=== PATIENT | female | born 1950 | race Caucasian/White ===

== ENCOUNTER 2017-03-06 19:40 | Observation (INO) | payer MEDICARE ==
[2017-03-06] MEDS ORDERED: Aspirin Low Dose CHEW TAB* 81 MG PO ONE (19:56)
[2017-03-06] MEDS ORDERED: methylPREDNISolone 125 MG* 2 ML VIAL IV ONE (19:56)
[2017-03-06] MEDS ORDERED: EPINEPHrine AMP 1 MG/ML IM ONE (19:56)
[2017-03-06] MEDS ORDERED: Famotidine IV* 10 MG/ML 2 ML (20 mg) IV SLOW PU ONE (19:56)
[2017-03-06] MEDS ORDERED: diPHENhydraMINE IV* 50 MG in NS 0.9% 50 ML* 50 ML IVPB ONE (19:56)
[2017-03-06] MEDS ORDERED: NS 0.9% 1000 ML* 1,000 ML IV ONE (19:57)
[2017-03-06 20:23] LABS: Hematocrit 39 % (35-47); Hemoglobin 12.5 g/dl (12.0-16.0); Mean Corpuscular HGB Conc 32 g/dl (31-36); Mean Corpuscular Hemoglobin 27 pg (27-31); Mean Corpuscular Volume 85 fL (80-97); Mean Platelet Volume 9 um3 (7.4-10.4); Red Blood Count 4.57 10^6/ul (4.0-5.4); Red Cell Distribution Width 13 % (10.5-15); White Blood Count 8.8 10^3/ul (3.5-10.8)
--- NOTE | 2017-03-06 20:34 | RAD ---
INDICATION: Allergic reaction COMPARISON: None. TECHNIQUE: Single AP portable view of the chest was obtained. FINDINGS: Image quality is compromised due to the relative inferiority of a portable chest x-ray. The heart and mediastinum exhibit normal size and contour. The lungs are grossly clear. There is no evidence of a large pleural effusion. Visualized bones are normal for the patient's age. IMPRESSION: No radiographic evidence for acute cardiopulmonary abnormality on this portable chest x-ray.
[2017-03-06 20:36] LABS: Albumin 3.9 g/dL (3.2-5.2); BUN/Creatinine Ratio 14.9 (8-20); Calcium 8.9 mg/dL (8.6-10.3); EGFR African American 113.6 (>60); EGFR Non-African American 88.3 (>60); Globulin 2.4 g/dL (2-4); Potassium 3.5 mmol/L (3.5-5.0); Total Bilirubin 0.4 mg/dL (0.2-1.0); Total Protein 6.3 g/dL (6.4-8.9)
[2017-03-06] MEDS ORDERED: Ondansetron INJ* 2 MG/ML VIAL IV PRN (22:41)
[2017-03-06] MEDS ORDERED: Al Hydrox/Mg Hydrox/Simet LIQ* 30 ML UDC PO PRN (22:41)
[2017-03-06] MEDS ORDERED: Acetaminophen TAB* 325 MG PO PRN (22:41)
[2017-03-06] MEDS ORDERED: LORazepam TAB(*) 0.5 MG PO PRN (22:43)
[2017-03-06] MEDS ORDERED: traZODone TAB* 50 MG TAB PO PRN (22:43)
[2017-03-07] MEDS: diPHENhydraMINE IV* 25 MG in NS 0.9% 50 ML* 50 ML IVPB PRN ×2 (00:28→13:03)
--- NOTE | 2017-03-07 01:03 | HP ---
CC: Amelia Yun MD HISTORY AND PHYSICAL: DATE OF ADMISSION: 03/06/17 TIME OF EVALUATION: 2300. PRIMARY CARE PHYSICIAN: Amelia Yun MD CHIEF COMPLAINT: Lip swelling, tongue swelling, and chest pain. HISTORY OF PRESENT ILLNESS: This is a 67-year-old female with an unremarkable past medical history who states this evening she sat down on her chair outside and felt like an electric shock on her bottom area and found a bee on her chair. Shortly thereafter, she developed chest pain, tongue swelling, and shortness of breath. EMS was called. She was given epi in the ambulance. She was given another IM dose of epi in the emergency room. She was given Pepcid 40 mg IV, Solu-Medrol 125 mg IV, and Benadryl and was referred to the hospitalist service for further evaluation. She was also given aspirin 324 mg. On my encounter, the patient is very sleepy. She keeps falling asleep during my interaction. She states that her lips and tongue feel almost back to baseline. The tip of her tongue still feels a little abnormal. She denies any shortness of breath, no coughing, no chest pain. She did also have a rash that seems to have improved. No nausea or vomiting. No history of issues with bee stings in the past. She does have anaphylaxis to SULFA allergy. Otherwise, remaining review of systems is negative. PAST MEDICAL HISTORY: 1. Insomnia. 2. Cough variant asthma. MEDICATIONS: 1. Trazodone 50 mg at bedtime. 2. Lorazepam 1 mg at bedtime. ALLERGIES: New allergy that we will enter is BEE VENOM, anaphylaxis; SULFA ANTIBIOTICS, anaphylaxis; MORPHINE, nausea and vomiting; OXYCODONE, nausea and vomiting. FAMILY HISTORY: Reviewed and noncontributory. SOCIAL HISTORY: The patient lives alone. No known tobacco use. She admits to 3 glasses of wine in the evening. No illicit drug use. Her healthcare proxy is her son, Geovanny Brown. Code status is full code. PHYSICAL EXAMINATION GENERAL: In no acute distress, very sleepy secondary to Benadryl. VITAL SIGNS: Temp is 99, pulse rate is 85, respiratory rate is 16, oxygen saturation 98% on room air, and blood pressure 102/54. HEENT: Head normocephalic. Pupils equal and reactive, anicteric. Oropharynx: Mucous membranes are moist. No erythema or exudate. NECK: Supple. No adenopathy. RESPIRATORY: Clear to auscultation. No wheezes, rhonchi, or rales. CARDIAC: Regular rate and rhythm. No murmurs, rubs, or gallops. ABDOMEN: Soft, nontender, and nondistended. EXTREMITIES: No cyanosis, clubbing, or edema. +1 DP. NEUROLOGIC: Alert, awake, and oriented x3. No focal neurologic deficits. DERM: Faint urticarial rash on her torso. LABORATORY DATA: White count 8.8, hemoglobin 12.5, hematocrit 39, platelets 228. Sodium 131, potassium 3.5, chloride 97, bicarb 25, BUN 10, creatinine 0.67 , lactic acid 2.1, troponin is 0. RADIOGRAPHIC DATA: Chest x-ray: No radiographic evidence for cardiopulmonary abnormality. EKG: Normal sinus rhythm. ASSESSMENT: This is a 67-year-old female with an unremarkable past medical history who presents to the emergency room via EMS after having tongue swelling and chest paining after getting stung by a bee. Anaphylaxis. Assessment: The patient showing symptoms of anaphylaxis after a bee sting. Her symptoms have significantly improved with medications. Vitals are stable, limited. The patient is nearly back to her baseline. Plan: We will admit her overnight for observation on telemetry. We will continue her on prednisone, Pepcid, and Benadryl as needed. We will do one repeat troponin. The patient will need to be discharged home with an EpiPen. CHRONIC MEDICAL PROBLEMS: 1. Insomnia. Resume her trazodone and lorazepam as needed. Likely, we will not need this this evening in the setting of her Benadryl as she seems sedated. 2. FEN. Placed her on a regular diet. 3. DVT prophylaxis. The patient's scores moderate risk, place her on heparin subcu t.i.d. 4. Code status. Full code. PATIENT TIME: Greater than 50 minutes spent doing the history and physical, more than half the time spent in direct patient contact. [id number]/[facility] #: [id number] MTDD
[2017-03-07] MEDS: Famotidine TAB* 20 MG PO SCH ×2 (01:14→08:01)
[2017-03-07] MEDS: Heparin VIAL(*) 5000 UNITS/ML VIAL (FIVE THOUSAND) SUBCUT SCH ×2 (06:13→13:10)
[2017-03-07] MEDS ORDERED: Ibuprofen TAB* 200 MG PO PRN (08:42)
[2017-03-07] MEDS ORDERED: predniSONE TAB* 20 MG PO SCH (09:00)
[2017-03-07 12:00] VITALS: BP 140/62
[2017-03-07] MEDS ORDERED: diPHENhydraMINE IV* 50 MG/ML 1 ml VIAL (BENADRYL) ONE (12:54)
--- NOTE | 2017-03-10 02:45 | DS ---
DISCHARGE SUMMARY: DATE OF ADMISSION: 03/06/17 DATE OF DISCHARGE: 03/07/17 DISCHARGE DIAGNOSES: 1. Anaphylaxis due to bee sting. 2. Chronic insomnia. 3. Cough-variant asthma. 4. History of ALLERGIES to SULFA ANTIBIOTICS, MORPHINE, OXYCODONE. 5. Trichomonas vaginalis. HISTORY: Dilma Mosley is a 67-year-old woman admitted with anaphylaxis after a bee sting. Please see the dictated admission note for details of the present illness, past medical history, family history, social and personal history, review of systems, and physical examination. DIAGNOSTIC STUDIES/LAB DATA: CBC: WBC 8.8, H and H 12.5/39, MCV 85, PLT 228K. Chemistries: Sodium 131, potassium 3.5, chloride 97, CO2 25, BUN and creatinine 10/0.67, glucose 87, lactic acid 2.1. Chemistry profile is otherwise within normal limits except for total protein of 6.3. Troponins were 0 and repeat 4 hours later at 0. Imaging: Chest x-ray on 03/06/17 showed no acute disease. EKG, on 03/06/17, showed sinus rhythm, probable left atrial enlargement. No prior EKG for comparison. HOSPITAL COURSE: The patient was initially admitted after having received epinephrine in the ambulance and then another dose of epinephrine in the emergency room as well as Pepcid 40 mg IV, Solu-Medrol 125 mg IV, and Benadryl. She was also given aspirin 324 mg. On initial admission, she was very sleepy. She was placed on regular diet. She was monitored. She was placed on heparin subcu t.i.d. for DVT prophylaxis. She is a full code. When seen on March 07, it was noted that her symptoms had resolved in about 7 hours. She also gave a recent history that she has been diagnosed with trichomonas. She felt fairly well though did have some mild itching in her posterior right thigh at around 1300 on March 07. She took additional Benadryl. By the afternoon of March 07, she felt well enough to go home. DISCHARGE MEDICATIONS: She is being discharged on her usual medications of: 1. Lorazepam 1 mg 1 to 2 tablets at bedtime as needed for sleep. 2. Trazodone 100 mg 1 to 2 tablets at bedtime as needed for sleep. 3. Benadryl 25 to 50 mg every 4 hours as needed for itching. 4. Epinephrine auto injector. She was given prescriptions for 3 to be picked up at [facility] today on her way home. She was warned of the symptoms of possible biphasic anaphylaxis pattern. She is to follow up with me this week at which time a referral to an optometry doctor will be made. DIET: She is to be on a regular diet. ACTIVITY: As tolerated. [id number]/[facility] #: [id number] [facility]
== END 2017-03-07 16:45 | disposition home or self-care (01) ==
LOC: ED 19:40 → MEDTELE 23:28
PROVIDERS: ADMIT Pediatrics; ATTEND Internal Medicine Geriatric Medicine
DX: T63.441A Toxic effect of venom of bees, accidental (unintentional), initial encounter (principal); R22.9 Localized swelling, mass and lump, unspecified; R07.9 Chest pain, unspecified; R06.02 Shortness of breath; T78.2XXA Anaphylactic shock, unspecified, initial encounter; Z88.2 Allergy status to sulfonamides; Z88.5 Allergy status to narcotic agent; J45.991 Cough variant asthma; G47.00 Insomnia, unspecified
CPT/HCPCS: 36415; 71010; 80053; 83605; 84484; 85025; 93005; 96361; 96374; 96375; 96376; 99284; A9270-GY; G0378; J0171; J1200; J1644; J2930; J7512

== ENCOUNTER 2017-03-10 15:12 | Emergency (ER) | payer MEDICARE ==
[2017-03-10 15:16] VITALS: BP 101/72
[2017-03-10] MEDS ORDERED: Aspirin Low Dose CHEW TAB* 81 MG PO ONE (15:46)
--- NOTE | 2017-03-10 16:45 | UC ---
Jennifer Calderón Edward, scribed for Karo Paniagua MD on 03/10/17 at 1551 . General HPI - HPI Summary HPI Summary: 67 y/o female presents to ED c/o generalized fatigue. Patient was felt general fatigue at work today and decided to check herself into Urgent Care, which is located right across the street of her workplace. Patient repeatedly states that she feels like she has been "run over by a truck." Associated sx: cough, itchy palms, dizziness and a bee sting on her right buttock. PMHx left breast cancer and cough variant asthma. SHx radiation & left lumpectomy. Patient was treated in the ED on 03/06/17 for anaphylaxis and chest pain after to a bee sting. Pt was given Epi, Solumedrol 125mg IV, benadryl and pepcid IV and ASA 324mg. Pt was admitted for observation, had 2 neg troponins and was DC'd home on 03/07/17. Asked her PCP if she should be on continued prednisone, and they said now. Pt has no fever and site of the beesting is not inflamed or infected. Pt denies chest pain or SOB now, just feels lousy. States she had a neg stress test, perhaps 15 yrs ago. - History of Current Complaint Chief Complaint: UCAllergicReaction Stated Complaint: DIZZY Hx Obtained From: Patient Onset/Duration: Gradual Onset, Lasting Days, Still Present Onset Severity: Mild Current Severity: Moderate Pain Intensity: 3 Associated Signs & Symptoms: Positive: Cough, Weakness - generalized, Other - recent anaphylaxis. Negative: Chest Pain, Diaphoresis, Edema, Fever, Nausea, SOB, Trauma, Vomiting, Wheezing Related Hx: Recent Hospitalization - in [facility] ED on 03/07/17 - Allergy/Home Medications Allergies/Adverse Reactions: Allergies Allergy/AdvReac Type Severity Reaction Status Date / Time Sulfa Antibiotics Allergy Severe facial/neck Verified 03/10/17 15:26 swelling Bee Venom Allergy Anaphylatic Verified 03/10/17 15:26 Shock Morphine Allergy Nausea And Verified 03/10/17 15:26 Vomiting Oxycodone Allergy Nausea And Verified 03/10/17 15:26 Vomiting PMH/Surg Hx/FS Hx/Imm Hx Previously Healthy: No - Seen on 03/06- at [facility] ED Respiratory History: Asthma Psychological History: Other - Insomnia Other Psychological History: insomnia Other History Of: Negative For: HIV - Surgical History Surgical History: Yes Surgery Procedure, Year, and Place: APPY, T&A, , Cholecystectomy, Right shoulder labrium, Left bicep tendon. hysterectomy, lumpectomy left breast 2011 - Family History Known Family History: Positive: Other - GI polyps - Social History Occupation: Employed Full-time - RN Lives: Alone Alcohol Use: Daily Alcohol Amount: 2-3 glasses/night Substance Use Type: None Substance Use Comment - Amount & Last Used: rare occassions Smoking Status (MU): Never Smoked Tobacco Have You Smoked in the Last Year: No Review of Systems Constitutional: Fatigue Skin: Other - Dry red spot on right buttocks is the site of the beesting. Eyes: Negative ENT: Negative Respiratory: Negative Cardiovascular: Negative Gastrointestinal: Negative Genitourinary: Negative Motor: Negative Neurovascular: Negative Musculoskeletal: Negative Neurological: Negative Psychological: Negative All Other Systems Reviewed And Are Negative: Yes Physical Exam Triage Information Reviewed: Yes Appearance: No Pain Distress, Well-Nourished, Ill-Appearing, Pain Distress Vital Signs: Initial Vital Signs Temp 97.8 F 03/10/17 15:15 Pulse 77 03/10/17 15:15 Resp 16 03/10/17 15:15 BP 101/72 03/10/17 15:15 Pulse Ox 97 03/10/17 15:15 Vital Signs Reviewed: Yes Eyes: Positive: Conjunctiva Clear ENT: Positive: Normal ENT inspection, Hearing grossly normal, Other:. Negative : Muffled/hoarse voice Neck: Positive: Supple Respiratory: Positive: Lungs clear, Normal breath sounds, No respiratory distress Cardiovascular: Positive: RRR, No Murmur, Pulses Normal, Brisk Capillary Refill Abdomen Description: Positive: Nontender, No Organomegaly, Soft. Negative: Distended, Guarding, McBurney's Point Tenderness, Peritoneal Signs, Pulsatile Mass, Splenomegaly Bowel Sounds: Positive: Present Musculoskeletal: Positive: Strength Intact, ROM Intact, No Edema Neurological: Positive: Alert, Muscle Tone Normal, Fatigued Psychological Exam: Normal Skin: Positive: Other - Dry, macular papular lesion on right buttock at site of beesting 03/06/17 Re-Evaluation - Re-Evaluation 1 Re-Evaluation Time: 16:15 Change: Unchanged - Patient still feels lousy Comment: Lungs clear Course/Dx - Course Course Of Treatment: 67 yo F s/p obs admission 03/06-for chest pain and after anaphylaxis following a beesting, had two neg troponins, presents to today just feeling lousy. Denies CP, SOB. Vitals are stable, beesting site does not look infected. EKG is nonSTEMI. Pt has not been on continued meds after DC from the hospital. Will transfer pt to [facility] ED by ambulance for further evaluation. I spoke with pt's son, Geovanny, an ED doc in [place], [place]. Pt and her son are in agreement for transfer by ambulance. ASA 324mg po given and IV site started. Pt stable at time of transfer by KARTIK. - Differential Dx - Multi-Symptom Differential Diagnoses: Cardiac Ischemia, Metabolic Abnormality, Other - adrenal insufficiency Provider Diagnoses: generalized fatigue after anaphylaxis - Physician Notifications Discussed Patient Care With: Natasha Adair - 16:10 Time Discussed With Above Provider: 16:10 - accepts pt Instructed by Provider To: MD Will See In ED Discharge - Discharge Plan Condition: Stable Disposition: TRANS HIGHER LVL OF CARE FAC Referrals: Amelia Yun MD [Primary Care Provider] - The documentation as recorded by the Jennifer stewart Edward accurately reflects the service I personally performed and the decisions made by me, Karo Paniagua MD.
== END 2017-03-10 16:24 | disposition short-term general hospital (02) ==
LOC: UCEAST 15:12
DX: R53.83 Other fatigue (principal); Z88.2 Allergy status to sulfonamides; Z91.018 Allergy to other foods; Z91.030 Bee allergy status; J45.909 Unspecified asthma, uncomplicated; G47.00 Insomnia, unspecified; Z90.49 Acquired absence of other specified parts of digestive tract; Z90.710 Acquired absence of both cervix and uterus
CPT/HCPCS: 93005; 99213; A9270-GY; G0463

== ENCOUNTER 2017-03-10 16:43 | Emergency (ER) | payer MEDICARE ==
--- NOTE | 2017-03-10 19:09 | ED ---
Nilo Calderón Salem, scribed for Timmy Oliveira MD on 03/10/17 at 1727 . Allergic Reaction/Systemic - HPI Summary HPI Summary: Patient is a 67 y/o F who presents to the ED s/p allergic reaction 4 days ago. She states that she had a swollen tongue and respiratory distress due to a bee sting, came into the ED that night, received Epi and Benadryl, and was then observed in the hospital overnight. Since, she reports having weakness, headache , pruritus of fingers, mild hives, and sporadic changes in BP, but denies CP, SOB, throat tightness, fever, chills, cough, N/V/D, trouble urinating, blood stool, sore throat, rhinorrhea, or changes in PO intake or appetite. Pt was in the urgent care earlier today and was sent here. She states that she rarely takes Prednisone for asthma, but took it after being stung. She denies any recent tick bites. - History of Current Complaint Time Seen by Provider: 03/10/17 17:05 Hx Obtained From: Patient Onset/Duration: Gradual Onset, Started days ago, Still Present Timing: Constant, Lasting Hours Severity Initially: Moderate Severity Currently: Moderate Location: Diffuse Character: Pruritus, Hives Aggravating Factor(s): Nothing Alleviating Factor(s): Nothing Associated Signs And Symptoms: Positive: Negative - Allergies/Home Medications Allergies/Adverse Reactions: Allergies Allergy/AdvReac Type Severity Reaction Status Date / Time Sulfa Antibiotics Allergy Severe facial/neck Verified 03/10/17 15:26 swelling Bee Venom Allergy Anaphylatic Verified 03/10/17 15:26 Shock Morphine Allergy Nausea And Verified 03/10/17 15:26 Vomiting Oxycodone Allergy Nausea And Verified 03/10/17 15:26 Vomiting PMH/Surg Hx/FS Hx/Imm Hx Endocrine/Hematology History: Denies: Hx Diabetes Cardiovascular History: Denies: Hx Hypertension Respiratory History: Reports: Hx Asthma - cough-variant Denies: Hx Chronic Obstructive Pulmonary Disease (COPD) GI History: Denies: Hx Ulcer Sensory History: Reports: Hx Contacts or Glasses - glasses Denies: Hx Hearing Aid Opthamlomology History: Reports: Hx Contacts or Glasses - glasses Neurological History: Reports: Other Neuro Impairments/Disorders - TBI - Cancer History Cancer Type, Location and Year: breast CA 2011 - Surgical History Surgery Procedure, Year, and Place: APPY, T&A, , Cholecystectomy, Right shoulder labrium, Left bicep tendon. hysterectomy, lumpectomy left breast 2012 Infectious Disease History: Reports: Hx Hepatitis Denies: Hx Clostridium Difficile, Hx Human Immunodeficiency Virus (HIV), Hx of Known/Suspected MRSA, Hx Shingles, Hx Tuberculosis, Hx Known/Suspected VRE, Hx Known/Suspected VRSA, History Other Infectious Disease - Family History Known Family History: Positive: Other - GI polyp. - Social History Alcohol Use: Daily Alcohol Amount: 2-3 glasses/night Hx Substance Use: Yes Substance Use Type: Reports: Marijuana Substance Use Comment - Amount & Last Used: rare occassions Hx Tobacco Use: No Smoking Status (MU): Never Smoked Tobacco Have You Smoked in the Last Year: No Review of Systems Negative: Fever, Chills ENT: Other - No throat tightness. Negative: Sore Throat, Nasal Discharge Positive: Other - Sporadic changes in BP. . Negative: Palpitations, Chest Pain Negative: Shortness Of Breath, Cough Positive: Other - No changes in PO or appetite. . Negative: Vomiting, Diarrhea , Nausea Genitourinary: Other - No trouble urinating or blood in stool. Positive: Other - Pruritus of fingers. Mild hives. Positive: Headache, Weakness All Other Systems Reviewed And Are Negative: Yes Physical Exam - Summary Physical Exam Summary: The patient is well-nourished in no acute distress and in no acute pain. Alert and oriented. The skin is warm and dry and skin color reflects adequate perfusion. Erythematous rash on arms. Good skin turgor. HEENT: The head is normocephalic and atraumatic. The pupils are equal and reactive. The conjunctivae are clear and without drainage. Nares are patent and without drainage. Mouth reveals moist mucous membranes and the throat is without erythema and exudate. The external ears are intact. The ear canals are patent and without drainage. The tympanic membranes are intact. DMM. Neck is supple with full range of motion and non-tender. There are no carotid bruits. There is no neck vein distension. Respiratory: Chest is non-tender. Lungs are clear to auscultation and breath sounds are symmetrical and equal. Cardiovascular: Hear is regular rate and rhythm. There is no murmur or rub auscultated. There is no peripheral edema and pulses are symmetrical and equal. Abdomen: The abdomen is soft and non-tender. Musculoskeletal: There is no back pain noted. Extremities are non-tender with full range of motion. There is good capillary refill. Neurological: Patient is alert and oriented to person, place and time. The patient has symmetrical motor strength in all four extremities. Psychiatric: The patient has an appropriate affect and does not exhibit any anxiety or depression. Triage Information Reviewed: Yes Vital Signs On Initial Exam: Last Vital Signs 03/10/17 03/10/17 03/10/17 17:26 17:36 17:56 Temperature 97.9 F Pulse Rate 70 70 Respiratory 16 15 19 Rate Blood Pressure 153/68 154/82 (mmHg) O2 Sat by Pulse 97 97 Oximetry 03/10/17 18:00 Temperature Pulse Rate 74 Respiratory 16 Rate Blood Pressure 153/69 (mmHg) O2 Sat by Pulse 97 Oximetry Vital Signs Reviewed: Yes Diagnostics - Vital Signs Vital Signs Temp Pulse Resp BP Pulse Ox 03/10/17 18:00 74 16 153/69 97 03/10/17 17:56 70 19 97 03/10/17 17:36 15 154/82 03/10/17 17:26 97.9 F 70 16 153/68 97 - Laboratory Lab Statement: Any lab studies that have been ordered have been reviewed, and results considered in the medical decision making process. Allergic Reaction Course/Dx - Course Course Of Treatment: 67 y/o F presents s/p allergic reaction 4 days ago. Since, she reports having weakness, headache, pruritus of fingers, mild hives, and sporadic changes in BP, but denies CP, SOB, throat tightness, fever, chills, cough, N/V/D, trouble urinating, blood stool, sore throat, rhinorrhea, or changes in PO intake or appetite. Pt's EKG conducted at urgent care earlier today was normal. Pt signed out at shift change. - Diagnoses Provider Diagnoses: Weakness Discharge - Discharge Plan Condition: Stable Disposition: OTHER Discharge Disposition Comment: Sign out to Dr. Paniagua. Pending labs. Referrals: Amelia Yun MD [Primary Care Provider] - The documentation as recorded by the Nilo stewart Salem accurately reflects the service I personally performed and the decisions made by me, Timmy Oliveira MD.
[2017-03-10 20:02] LABS: Albumin 4.2 g/dL (3.2-5.2); BUN/Creatinine Ratio 20.9 (8-20); C Reactive Protein 1.02 mg/L (< 5.00); Calcium 9.5 mg/dL (8.6-10.3); EGFR African American 113.6 (>60); EGFR Non-African American 88.3 (>60); Globulin 2.6 g/dL (2-4); Magnesium 2.1 mg/dL (1.9-2.7); Potassium 3.9 mmol/L (3.5-5.0); Total Bilirubin 0.3 mg/dL (0.2-1.0); Total Protein 6.8 g/dL (6.4-8.9)
[2017-03-10 20:38] LABS: Hematocrit 41 % (35-47); Hemoglobin 13.3 g/dl (12.0-16.0); Mean Corpuscular HGB Conc 32 g/dl (31-36); Mean Corpuscular Hemoglobin 27 pg (27-31); Mean Corpuscular Volume 85 fL (80-97); Mean Platelet Volume 9 um3 (7.4-10.4); Red Blood Count 4.86 10^6/ul (4.0-5.4); Red Cell Distribution Width 13 % (10.5-15); White Blood Count 9.1 10^3/ul (3.5-10.8)
[2017-03-10 20:41] LABS: Urine Bacteria Absent (Absent); Urine Bilirubin Negative (Negative); Urine Glucose Negative (Negative); Urine Nitrite Negative (Negative)
[2017-03-10 21:27] VITALS: BP 148/78
[2017-03-10 21:30] LABS: TSH (Thyroid Stimulating Horm) 0.64 mcIU/mL (0.34-5.60)
--- NOTE | 2017-03-11 01:52 | ED ---
Enmanuel Calderón Benjamin, estelaibed for Karo Paniagua MD on 03/10/17 at 2000 . Progress - Progress Note Progress Note: Pt was seen by me in urgent care earlier today. Is received in signout from Dr. Oliveira as I come on an ED shift,, who has ordered labs for further evaluation of pt who just feels lousy after being seen in the ED and admitted for observation on 03/06- fo anaphylaxis to a beesting, and chest pain. Troponins were neg x 2. Pt has no cardiac risk factors, and had neg stress test 15 yrs ago. Was not sent home on prednisone or continued medication. Beesting site is not infected, and pt has no fever. Re-Evaluation - Re-Evaluation First Eval Re-Evaluation Time: 20:45 - pt wants to go home, is hungry. Labs unremarkable, call to Dr. Yun. Change: Unchanged Second Eval Re-Evaluation Time: 21:13 - Discussed lab results with the pt, as well as pt's course of treatment and disposition. Advised pt to arrange a follow up appointment with Dr. Filemon Yun on 03/12/17. Change: Improved Course/Dx - Course Course Of Treatment: Reviewed medication lists and known allergies. This is a 67yo female who is allergic to bee venom who was seen in ED with allergic reaction after a bee sting 4 days ago. Pt was seen 4 days ago for tongue swelling and throat tightening, which pt received Epi and Benadryl and d/c accordingly after overnight observation stay and troponins were neg x 2. Pt returns to ED c/o weakness, GANT, and pruritus of fingers. Denies CP, SOB, throat tightness, fever, or chills. Pt came to ED by ambulance after presenting to today. Discussed pt's care with Dr. Yun, lab results with the pt, as well as pt's course of treatment and disposition. Advised pt to arrange a follow up appointment with Dr. Filemon Yun on 03/12/17. - Diagnoses Provider Diagnoses: Weakness, Blood pressure under poor control. - Provider Notifications Discussed Care Of Patient With: Amelia Yun Time Discussed With Above Provider: 21:03 - Critical Care Time Critical Care Time: 30-74 min The documentation as recorded by the Enmanuel stewart Benjamin accurately reflects the service I personally performed and the decisions made by me, Karo Paniagua MD.
== END 2017-03-10 21:28 | disposition home or self-care (01) ==
LOC: ED 16:43
DX: R53.1 Weakness (principal); I10 Essential (primary) hypertension
CPT/HCPCS: 36415; 80053; 81003; 81015; 83735; 84443; 84484; 85025; 86140; 87086; 96360; 99284

== ENCOUNTER 2018-08-16 14:14 | Inpatient (IN) | payer MEDICARE ==
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
[2018-08-16] MEDS ORDERED: NS 0.9% 1000 ML* 1,000 ML IV ONE (14:26)
[2018-08-16] MEDS ORDERED: Iodixanol* (CONTRAST) 320 MG/ML 100 ML SDV IV ONE (14:46)
[2018-08-16] MEDS ORDERED: Alteplase* 100 MG VIAL IV ONE ×2 (14:47)
[2018-08-16] MEDS ORDERED: Alteplase* 100 MG VIAL ONE (14:48)
[2018-08-16] MEDS ORDERED: Metoprolol Tartrate IV* 1 MG/ML 5 ML VIAL ONE (15:12)
[2018-08-16] MEDS ORDERED: Metoprolol Tartrate IV* 1 MG/ML 5 ML VIAL IV ONE (15:16)
[2018-08-16 15:38] LABS: ABS Basophils 0.1 10^3/ul (0-0.2); ABS Eosinophils 0.1 10^3/ul (0-0.6); ABS Lymphocytes 1.9 10^3/ul (1.0-4.8); ABS Monocytes 0.6 10^3/ul (0-0.8); ABS Neutrophils 3.4 10^3/ul (1.5-7.7); ABS Nucleated RBC 0 10^3/ul; Eosinophil % 1.9 %; Hematocrit 39 % (35-47); Hemoglobin 12.6 g/dl (12.0-16.0); Lymphocyte % 31.6 %; Mean Corpuscular HGB Conc 33 g/dl (31-36); Mean Corpuscular Hemoglobin 28 pg (27-31); Mean Corpuscular Volume 85 fL (80-97); Nucleated Red Blood Cells % 0.1; Platelet Count 221 10^3/ul (150-450); Red Blood Count 4.54 10^6/ul (4.00-5.40); Red Cell Distribution Width 14 % (10.5-15); White Blood Count 6.1 10^3/ul (3.5-10.8)
[2018-08-16 15:46] LABS: INR 0.86 (0.77-1.02)
[2018-08-16] MEDS ORDERED: Labetalol IV* 5 MG/ML 20 ML VIAL IV PUSH ONE (16:00)
[2018-08-16 16:06] LABS: EGFR Non-African American 72.8 (>60)
[2018-08-16] MEDS ORDERED: Thiamine IV* 100 MG/ML 2 ML VIAL IV ONE (16:16)
[2018-08-16] MEDS ORDERED: Benzocaine/Menthol LOZ* 1 LOZENGE PO PRN (18:05)
[2018-08-16] MEDS ORDERED: LORazepam TAB(*) 1 MG PO ONE (18:05)
[2018-08-16] MEDS ORDERED: Thiamine IV 100 MG in NS 0.9% 50 ML IV ONE (18:30)
[2018-08-16 21:20] LABS: ABS Basophils 0.1 10^3/ul (0-0.2); ABS Eosinophils 0.2 10^3/ul (0-0.6); ABS Lymphocytes 2.1 10^3/ul (1.0-4.8); ABS Monocytes 0.6 10^3/ul (0-0.8); ABS Neutrophils 3.9 10^3/ul (1.5-7.7); ABS Nucleated RBC 0 10^3/ul; Eosinophil % 2.5 %; Hematocrit 38 % (35-47); Hemoglobin 12.4 g/dl (12.0-16.0); Mean Corpuscular HGB Conc 33 g/dl (31-36); Mean Corpuscular Hemoglobin 28 pg (27-31); Mean Corpuscular Volume 86 fL (80-97); Mean Platelet Volume 8.4 fL (7.4-10.4); Nucleated Red Blood Cells % 0.1; Platelet Count 210 10^3/ul (150-450); Red Blood Count 4.45 10^6/ul (4.00-5.40); Red Cell Distribution Width 13 % (10.5-15); White Blood Count 6.8 10^3/ul (3.5-10.8)
[2018-08-16 21:30] LABS: INR 0.86 (0.77-1.02)
[2018-08-16 21:36] LABS: EGFR Non-African American 82.4 (>60)
[2018-08-16] MEDS: Heparin VIAL(*) 5000 UNITS/ML VIAL (FIVE THOUSAND) SUBCUT SCH (22:27)
--- NOTE | 2018-08-16 23:12 | HP ---
HISTORY AND PHYSICAL: DATE OF ADMISSION: 08/16/18 PRIMARY CARE PHYSICIAN: Amelia Yun MD CHIEF COMPLAINT: Tingling and numbness in left upper extremity, left lower extremity, and left side of the face. HISTORY OF PRESENT ILLNESS: The patient is a 68-year-old female with history of traumatic brain injury in the past, breast cancer status post surgery with lumpectomy in 2011, anxiety, insomnia. The patient presented to the emergency room for evaluation of numbness and tinging in the left upper extremity, left lower extremity, left side of the face that started at 1:15 p.m. while at work. The patient reported having nausea before lunch. She was in her desk when she noticed tingling and right-sided tongue asymmetry when she tried to stick it out. The patient was concerned and presented to the ED for further evaluation. She was seen by ED physician at around 2:16 p.m. The patient denied any speech changes. The patient denied facial droop, arm weakness. Stroke code was called at that time. Her blood pressure on presentation was 157/ 90. She does not have a history of hypertension and reported having normal blood pressure at baseline. She had a heart rate of 70 beats per minute, respiratory rate was 18 at that time. She did not have any focal weakness at that time. She was alert, awake, and oriented. The patient had CT scan of the brain done immediately at around 2:27, which showed no acute intracranial pathology. She subsequently had CTA of the head, which showed no evidence of carotid stenosis or evidence of large vessel thrombosis. Her NIH stroke scale was around 2 due to mild sensory impairment and dysmetria on left, which was unchanged after reassessment in 20 minutes. The patient was evaluated by neurologist, Dr. Charles. TPA was recommended. Extensive discussion was performed with the patient and the patient's son who is ED physician at a different hospital. After thorough discussion, she agreed on to undergo TPA. The patient received TPA around 3:30. Reassessment of her neurological status was benign. The patient was keenly responsive with no points on level of consciousness. She was oriented to self to place and time. The patient had good arm tag stringer. No visual field defects. No facial asymmetry. No drift noted in the upper or lower extremities. No limb ataxia. No significant sensory loss. The patient received a dose of metoprolol prior to TPA as her blood pressure was elevated to 190/87. Repeat blood pressure pre-TPA was around 156/81; post-TPA, her blood pressure remains at 169/94. PAST MEDICAL HISTORY: 1. Breast cancer, status post lumpectomy in 2011. 2. Cough variant asthma. 3. Traumatic brain injury. 4. History of hepatitis. PAST SURGICAL HISTORY: 1. Appendectomy. 2. . 3. Cholecystectomy. 4. Right shoulder surgery. 5. Left biceps tendon surgery. 6. Hysterectomy. 7. Lumpectomy of the left breast in 2011. MEDICATIONS: At home: 1. Lactobacillus acidophilus probiotic. 2. Ativan 1 to 2 mg at bedtime. 3. Trazodone 300 mg at bedtime. ALLERGIES: BEE VENOM, MORPHINE, OXYCODONE. FAMILY HISTORY: History of GI polyps. SOCIAL HISTORY: Employed full-time. Drinks 2 to 3 glasses of alcohol per night. Uses marijuana regularly. No IV drug abuse. No tobacco smoking history. REVIEW OF SYSTEMS: All 14 systems reviewed and as per HPI. PHYSICAL EXAM: GENERAL: The patient is in bed in no apparent distress. VITAL SIGNS: Temperature 97.8, pulse 56 beats per minute, respiratory rate 18 per minute, O2 sat 97% on room air, blood pressure 169/94. HEENT: Pupils equal and reactive to light. Mucous membranes moist. LUNGS: Good air entry bilaterally. Clear to auscultation. CARDIOVASCULAR: S1, S2 present, regular. ABDOMEN: Soft. Bowel sounds present. Nontender, nondistended. EXTREMITIES: Normal range of motion. NEURO: Alert, awake, oriented x4. No focal deficits, no slurred speech. No evidence of aphasia, no evidence of facial weakness. GCS score of 15. DIAGNOSTIC STUDIES/LAB DATA: Laboratory exam, WBC 6.1, hemoglobin 12.6, hematocrit 39, platelet count 221. INR 0.86. CTA of the brain and head CTA as described above in HPI. ASSESSMENT AND PLAN: 68-year-old female with history of marijuana use, regular alcohol use, admitted with tingling and numbness of left upper, left lower extremity and face, CT brain negative for large vessel thrombus or hemorrhage. The patient received tPA. The patient admitted to ICU for close monitoring. 1. Neuro: The patient is status post tPA after all the risks and benefits of tPA were thoroughly discussed with the patient at bedside by neurologist, Dr. Charles, ED physician and myself. The patient's son who is also emergency room physician at outside facility was available over the phone. The patient signed the consent. The patient will be monitored closely in the ICU with frequent neuro checks. She will be monitored closely for bleeding. Blood pressure to be closely monitored. Parameters for mental status changes and blood pressure monitoring were all discussed with bedside RN. Keep the head of the bed elevated at 30 degrees. Aspiration, seizure precautions. Frequent neuro checks were ordered. 2. Cardiovascular: The patient with no history of hypertension, blood pressure slightly elevated, responded to dose of labetalol in the ED. We will monitor blood pressure closely, maintain blood pressure at less than 180/105 and dose labetalol if needed. 3. The blood glucose within normal limits. No history of diabetes. 4. Respiratory: No acute issues at this time. The patient is saturating well on room air. Oxygen therapy per protocol. 5. GI: N.p.o. Speech evaluation in the morning. The patient with history of regular alcohol use. No signs of withdrawal at this time. Will monitor closely. Thiamine IV and folate were ordered. Normal LFTs. 6. Renal: No electrolyte abnormalities. Sodium slightly low. Monitor urine output closely. 7. Heme: No leukocytosis. No evidence of anemia. Platelets within normal limits. 8. Infectious disease: No concern with infection. No antibiotics required. 9. Musculoskeletal: No abnormalities. The patient with tingling and numbness , no extremity weakness. 10. The patient is admitted for close monitoring to ICU at this time. TIME SPENT: Total time spent doing history and physical 60 minutes more than 50 % face to face with patient D/w Dr Charles, Dr Paniagua, bedside RN. [id number]/[facility] #: [id number] [facility] HOSPITALElisabeth
[2018-08-16] MEDS: traZODone TAB* 100 MG PO SCH (23:27)
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
[2018-08-17] MEDS: LORazepam TAB(*) 1 MG PO SCH ×3 (01:45→22:05)
[2018-08-17] MEDS: Heparin VIAL(*) 5000 UNITS/ML VIAL (FIVE THOUSAND) SUBCUT SCH (09:06)
[2018-08-17 09:39] LABS: Urine Appearance Cloudy; Urine Blood Negative (Negative); Urine Color Yellow; Urine Ketones Negative (Negative); Urine Protein Negative (Negative); Urine Red Blood Cell 2+(6-10/hpf) (Absent); Urine Specific Gravity 1.023 (1.010-1.030); Urine Urobilinogen Negative (Negative); Urine White Blood Cell 2+(11-20/hpf) (Absent)
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
--- NOTE | 2018-08-17 14:44 | PN ---
Progress Note - Progress Note Date of Service: 08/17/18 Note: Progress Note -- Critical Care 24 hour events/significant events: -s/p tpa 08/16 1330 -overnight no headache/n/v, improved left arm/leg numbness, minimal numbness at left hand fingertips only -BP 130-150s; afebrile. Tolerating po intake. No tele events noted, remains NSR. Tele: NSR Vitals: Vital Signs Temp 97.5 F 08/17/18 08:16 Pulse 73 08/17/18 14:01 Resp 22 08/17/18 14:01 BP 159/98 08/17/18 14:01 Pulse Ox 97 08/17/18 14:01 Intake & Output 08/16/18 08/17/18 08/17/18 18:59 06:59 18:59 Intake Total 0 1387 440 Output Total 300 0 Balance -300 1387 440 Weight 63 kg 64.1 kg Intake: IV Fluids 987 NS (0.9%) 987 Oral 0 400 440 Output: Urine 300 0 Other: Estimated Void Medium # Voids 1 O2/Vent: RA Infusions: heplock Medications: Lorazepam (Ativan Tab(*)) 1 mg PO BEDTIME [facility] Last Admin: 08/17/18 04:22 Dose: 0.5 mg Throat Lozenges (Chloraseptic Lisa*) 1 lisa PO Q6H PRN PRN Reason: COUGH Trazodone HCl (Desyrel Tab*) 300 mg PO BEDTIME [facility] Last Admin: 08/16/18 23:27 Dose: 300 mg Physical Exam: General: awake, alert, no distress, no diaphoresis Head: normocephalic, atraumatic HEENT: no pallor, no icterus, moist mucous membranes Neck: soft, supple, no jvd, no stridor CVS: normal rate, regular, no murmur Resp: bilateral air entry, no rhales, no wheeze, no rhonchi, no acc muscle use Abdomen: soft, nontender, nondistended, bowel sounds present Ext: pulses+, warm, no edema Neuro: awake, alert, orientedx3, 5/5 strength all ext, minimal/no facial droop on left face, mild tongue deviation to right+ Labs: Laboratory Results - last 24 hr 08/16/18 08/16/18 08/16/18 15:31 15:31 15:31 WBC 6.1 RBC 4.54 Hgb 12.6 Hct 39 MCV 85 MCH 28 MCHC 33 RDW 14 Plt Count 221 MPV 8.0 Neut % (Auto) 55.1 Lymph % (Auto) 31.6 [place] % (Auto) 10.5 Eos % (Auto) 1.9 Baso % (Auto) 0.9 Absolute Neuts (auto) 3.4 Absolute Lymphs (auto) 1.9 Absolute Monos (auto) 0.6 Absolute Eos (auto) 0.1 Absolute Basos (auto) 0.1 Absolute Nucleated RBC 0 Nucleated RBC % 0.1 INR (Anticoag Therapy) 0.86 APTT 30.9 Sodium 132 L Potassium 4.1 Chloride 100 L Carbon Dioxide 26 Anion Gap 6 BUN 14 Creatinine 0.79 Est GFR ( Amer) 88.1 Est GFR (Non-Af Amer) 72.8 BUN/Creatinine Ratio 17.7 Glucose 84 Lactic Acid Calcium 9.1 Total Bilirubin 0.50 AST 21 ALT 13 Alkaline Phosphatase 58 Troponin I 0.00 Total Protein 6.4 Albumin 4.1 Globulin 2.3 Albumin/Globulin Ratio 1.8 Triglycerides 59 Cholesterol 193 LDL Cholesterol 81 HDL Cholesterol 100.0 Urine Color Urine Appearance Urine pH Ur Specific [place] Urine Protein Urine Ketones Urine Blood Urine Nitrate Urine Bilirubin Urine Urobilinogen Ur Leukocyte Esterase Urine WBC (Auto) Urine RBC (Auto) Ur Squamous Epith Cells Urine Bacteria Urine Glucose Blood Type Antibody Screen 08/16/18 08/16/18 08/16/18 15:31 15:31 21:09 WBC RBC Hgb Hct MCV MCH MCHC RDW Plt Count MPV Neut % (Auto) Lymph % (Auto) [place] % (Auto) Eos % (Auto) Baso % (Auto) Absolute Neuts (auto) Absolute Lymphs (auto) Absolute Monos (auto) Absolute Eos (auto) Absolute Basos (auto) Absolute Nucleated RBC Nucleated RBC % INR (Anticoag Therapy) 0.86 APTT 31.2 Sodium Potassium Chloride Carbon Dioxide Anion Gap BUN Creatinine Est GFR ( Amer) Est GFR (Non-Af Amer) BUN/Creatinine Ratio Glucose Lactic Acid 0.5 Calcium Total Bilirubin AST ALT Alkaline Phosphatase Troponin I Total Protein Albumin Globulin Albumin/Globulin Ratio Triglycerides Cholesterol LDL Cholesterol HDL Cholesterol Urine Color Urine Appearance Urine pH Ur Specific [place] Urine Protein Urine Ketones Urine Blood Urine Nitrate Urine Bilirubin Urine Urobilinogen Ur Leukocyte Esterase Urine WBC (Auto) Urine RBC (Auto) Ur Squamous Epith Cells Urine Bacteria Urine Glucose Blood Type O Positive Antibody Screen Negative 08/16/18 08/16/18 08/17/18 21:09 21:09 09:15 WBC 6.8 RBC 4.45 Hgb 12.4 Hct 38 MCV 86 MCH 28 MCHC 33 RDW 13 Plt Count 210 MPV 8.4 Neut % (Auto) 57.0 Lymph % (Auto) 31.0 Gulf % (Auto) 8.7 Eos % (Auto) 2.5 Baso % (Auto) 0.8 Absolute Neuts (auto) 3.9 Absolute Lymphs (auto) 2.1 Absolute Monos (auto) 0.6 Absolute Eos (auto) 0.2 Absolute Basos (auto) 0.1 Absolute Nucleated RBC 0 Nucleated RBC % 0.1 INR (Anticoag Therapy) APTT Sodium Potassium Chloride Carbon Dioxide Anion Gap BUN 12 Creatinine 0.71 Est GFR ( Amer) 99.7 Est GFR (Non-Af Amer) 82.4 BUN/Creatinine Ratio Glucose Lactic Acid Calcium Total Bilirubin AST ALT Alkaline Phosphatase Troponin I Total Protein Albumin Globulin Albumin/Globulin Ratio Triglycerides Cholesterol LDL Cholesterol HDL Cholesterol Urine Color Yellow Urine Appearance Cloudy Urine pH 5.0 Ur Specific [place] 1.023 Urine Protein Negative Urine Ketones Negative Urine Blood Negative Urine Nitrate Negative Urine Bilirubin Negative Urine Urobilinogen Negative Ur Leukocyte Esterase 2+ A Urine WBC (Auto) 2+(11-20/hpf) A Urine RBC (Auto) 2+(6-10/hpf) A Ur Squamous Epith Cells Present A Urine Bacteria Absent Urine Glucose Negative Blood Type Antibody Screen Imaging: CT brain 08/16 - no acute pathology CTA head 08/16 - no sig disease noted; reviewed official report Assessment: 68y F w/pmhx of Right breast CA s/p lumpectomy/radiation years back , h/o TBI, mild asthma; presents to [facility] ER for complaints of Left facial numbness and left arm and leg numbness suddenly at work around 1315. She comes to ER, CT brain negative, given tPA at 1330. -CVA, suspect Right MCA -alcohol use disorder, heavy use Plan: -neurochecks q4h after 4pm -maintain SBP<180 -MRI brain w/ contrast today; MRI cervical spine also -if MRI brain negative for bleed, start asa 81mg -would start statin, discussed with patient that LDL 80s, but low dose statin for plaque stabilization would benefit for 1-2 months; she would decide -TTE to eval for thrombus/structural abnormality -Tele monitoring for arrythmia; none noted so far -check tsh and hba1c tomorrow -fall prec -cardiac diet -neurology following DVT prophylaxis: SCDs GI prophylaxis: - Central Line: - Arterial Line: - [place] Cathetor: - Disposition: ICU; may be potential transfer to tele after 24 hour window Code Status: full code Paco Payne MD Ceiling Cleaner (Electronically Signed)
[2018-08-17] MEDS ORDERED: Gadoteridol* (CONTRAST) 279.3 MG/ML 10 ML IV ONE (15:17)
--- NOTE | 2018-08-17 17:29 | ECHO ---
Patient: JIN DHALIWAL [facility] Rec#: [id number] : 1950 Date: 08/17/2018 Age: 68y Height: 168 cm / 66.1 in Weight: 64 kg / 141.1 lbs Sex: F BSA: 1.73 Room#: ICU 12 Admit Date#: 08/16/2018 Type: Inpatient Referring: Paco Payne Reading: Kristal Silverman MD Development Spec: Cleo Silva RDCS,RDMS CC: Amelia Yun MD Transthoracic Echocardiogram Indication: CVA BP: 147/76 HR: 72 Rhythm: NSR Findings History: Breast cancer, radiation. Technical Comments: The study quality is good. Left Ventricle: The left ventricular chamber size is normal. There is no left ventricular hypertrophy. Global left ventricular wall motion and contractility are within normal limits. The estimated ejection fraction is 50-55%. There is no consistent Doppler evidence of clinically significant diastolic dysfunction. Left Atrium: The left atrial chamber size is normal. Right Ventricle: The right ventricular chamber size and systolic function are within normal limits. The right ventricle wall thickness is mildly increased. Right Atrium: The right atrial cavity size is normal. Aortic Valve: The aortic valve is trileaflet. There is no evidence of aortic valve thickening. Systolic excursion of the aortic valve is normal. There is no evidence of aortic regurgitation. There is no evidence of aortic stenosis. Mitral Valve: The mitral valve leaflets are mildly thickened. There is mild mitral regurgitation. The mitral regurgitant jet is posteriorly directed. The mitral regurgitant jet is laterally directed. There is no evidence of mitral stenosis. Tricuspid Valve: The tricuspid valve leaflets are normal. There is mild to moderate tricuspid regurgitation. No pulmonary hypertension is noted. Pulmonic Valve: There is no evidence of pulmonic valve thickening. There is a trace pulmonic regurgitation. Pericardium: There is no significant pericardial effusion. Aorta: The aortic root appears normal. There is no dilatation of the aortic arch. Pulmonary Artery: The main pulmonary artery is not well visualized. Venous: The inferior vena cava appears normal in size. There is an approximate 50% respiratory change in the inferior vena cava dimension. Conclusions The left ventricular chamber size is normal. Global left ventricular wall motion and contractility are within normal limits. The estimated ejection fraction is 50-55%. The right ventricular chamber size and systolic function are within normal limits. There is mild mitral regurgitation, posteriorly and laterally directed jet. There is mild to moderate tricuspid regurgitation. No prior echo to compare. No bubble contrast used. No prior echo to compare. Measurements Name Value Normal Range RVIDd (AP) 2D 2.7 cm (0.9 - 2.6) RVDdMajor (2D) 2.5 cm (2.2 - 4.4) RAd ISD 4CH 4 cm (3.4 - 4.9) RA (A4C)W 3.8 cm (2.9 - 4.6) IVSd (2D) 1 cm (0.6 - 1) LVPWd (2D) 0.9 cm (0.6 - 1) LVIDd (2D) 4 cm (3.6 - 5.4) LVIDs (2D) 3.1 cm - LV FS (2D) 22 % (25 - 45) Aortic Annulus 2 cm (1.4 - 2.6) Ao root diameter (2D) 3 cm (2.1 - 3.5) Ascending Ao 2.9 cm (2.1 - 3.4) Aortic arch 2.7 cm (1.8 - 3.4) LA dimension (AP) 2D 3.2 cm (2.3 - 3.8) LAd ISD 4CH 4 cm (2.9 - 5.3) LA ISD 4CH W 4 cm (2.5 - 4.5) Name Value Normal Range LA ESV BP (A/L) index 17 ml/m2 - Name Value Normal Range MV E-wave Vmax 0.6 m/sec - MV deceleration time 166 msec - MV A-wave Vmax 0.8 m/sec - MV E:A ratio 0.8 ratio - LV septal e' Vmax 0.06 m/sec - LV lateral e' Vmax 0.06 m/sec - LV E:e' septal ratio 10 ratio - LV E:e' lateral ratio 10 ratio - Name Value Normal Range AV Vmax 0.9 m/sec - AV VTI 19 cm - AV peak gradient 3.2 mmHg - AV mean gradient 2 mmHg - LVOT Vmax 0.6 m/sec - LVOT VTI 12 cm - LVOT peak gradient 1.4 mmHg - LVOT mean gradient 1 mmHg - SAW Vmax 0.4 m/sec - Name Value Normal Range TR Vmax 2 m/sec - TR peak gradient 16 mmHg - RAP 3 mmHg - RVSP 16 mmHg - IVC diameter 1.9 cm - Name Value Normal Range PV Vmax 0.5 m/sec - PV peak gradient 1 mmHg -
[2018-08-17] MEDS ORDERED: HYDROcodone/ACETAMIN 5-325 MG* 1 TAB PO ONE (18:15)
[2018-08-17] MEDS: Aspirin EC TAB* 81 MG TAB.EC PO SCH (18:22)
[2018-08-17] MEDS ORDERED: Atorvastatin* 20 MG TAB PO SCH (21:00)
[2018-08-17] MEDS: traZODone TAB* 100 MG PO SCH (22:06)
[2018-08-17] MEDS ORDERED: HYDROcodone/ACETAMIN 5-325 MG* 1 TAB PO PRN (22:09)
[2018-08-18 05:33] LABS: Hematocrit 37 % (35-47); Mean Corpuscular HGB Conc 33 g/dl (31-36); Mean Corpuscular Hemoglobin 28 pg (27-31); Mean Corpuscular Volume 85 fL (80-97); Mean Platelet Volume 8.3 fL (7.4-10.4); Platelet Count 206 10^3/ul (150-450); Red Blood Count 4.34 10^6/ul (4.00-5.40); Red Cell Distribution Width 13 % (10.5-15); White Blood Count 5.1 10^3/ul (3.5-10.8)
[2018-08-18 05:50] LABS: EGFR Non-African American 78.5 (>60)
[2018-08-18] MEDS: Aspirin EC TAB* 81 MG TAB.EC PO SCH (09:35)
--- NOTE | 2018-08-18 10:49 | PN ---
Work Excuse - Work Note Work Note: The above employee has been evaluated on 08/18/18. The physician has instructed the employee concerning further work as described below. Work Status: Ms. Mosley was hospitalized at [facility] from 08/16/2018 - 2017. Ms. Mosley is expected to return to work on 08/22/2018. Also, Ms. Mosley suffers from chronic migraine headaches with photosensitivity that are exacerbated by fluorescent light. Accommodation for non-fluorescent light fixture in her work place is recommended. Sherwin Charles MD [id number]
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
--- NOTE | 2018-08-18 11:00 | DS ---
Discharge Summary Patient Name: Dilma Mosley Date of Admission: 08/16/2018 Date of Discharge: 08/18/2018 Attending: Dr Paco Payne (proof plate maker) Consultants: Dr Sherwin Charles (Neurology) Admitting Diagnoses: 1) Cerebrovascular accident Discharge Diagnoses: 1) Transient Ischemic Attack HPI/Hospital Course: 68y F with history of TBI, breast cancer s/p radiation/lumpectomy 2011, anxiety , insomnia, moderate alcohol use daily; presented to ER for left facial numbness and tingling, associated with left arm and leg numbness while at work, started at 115pm on 08/16. She reported nausea. She reported to ER, had a CT brain performed demonstrating no acute finding. A CTA of brain also demonstrated no significant large vessel occlusion. Her initial NIHSS was 2.She was seen by neurology and deemed a good candidate for thrombolytics after a discussion with patient. She received IV alteplase at 330pm. She was admitted to ICU for neurochecks. Over the next 24 hours, she had improved/resolved left facial and left arm/leg numbness. An MRI brain w/contrast was performed demonstrating no acute infarct or hemorrhage, but there were small vessel areas of chronic disease vs demyelinating process thought to be from possible migraines she has. She was started on ASA 81mg, advised to be started on Lipitor 20mg daily (but did not want to take it). A transthoracic echo was performed demonstrating no acute LV dysfunction. She demonstrated good blood pressures in 130s, no arrhythmias on telemetry over the past 24-48 hours. She showed no bleeding. C-Spine MRA demonstrated C5-6 disc bulge with severe central canal stenosis and Left and right foraminal stenosis On 08/18, she is awake, alert. No complaints offered. Walking around ICU. Mild headache at times which she always has. She took her trazadone and night time Ativan PO last night. Neurology has seen patient also. Questions were answered, MRI and MRA C-spine were discussed. She knew of findings of C-spine from previous trauma and did not opt for surgical intervention, only conservative therapy. We discussed findings and plan with patient and advised that she would be discharged today. Physical exam awake/alert, no distress; s1s2, no murmur; bilateral air entry, no RRW; LE pulses+, no edema; warm ext; normocephalic/atraumatic; no pallor/ icterus, MMM Procedures/Imaging: Computer Tomography of the brain, Computer Tomographic angiography of head, Transthoracic echocardiogram, Magenetic resonance imaging of brain with contrast, Magnetic Resonance angiography of c-spine Laboratory/Data: See chart Discharge Medications: --New medications Aspirin 81mg PO daily; Lipitor 20mg PO qhs -Continue previous home medications--> Benzocaine/Menthol DOMINGA* [Chloraseptic DOMINGA*] 1 dominga PO Q6H PRN lozenge 08/18/18 [ Rx] HYDROcodone/ACETAMIN 5-325 MG* [[place] 5-325 TAB*] 0.5 tab PO Q4H PRN tab [Rx] LORazepam TAB(*) [Ativan 1 MG TAB (*)] 1 mg PO BEDTIME tab 08/18/18 [Rx] traZODone TAB* [Desyrel TAB*] 300 mg PO BEDTIME tab 08/18/18 [Rx] Diet: cardiac diet, low sodium Activity: as tolerated Condition upon discharge: stable, improved Disposition: HOME Code Status: full code Follow-up: With CHELSEA Lynch Total Discharge time >30minutes Paco Payne MD Concrete Wall Grinder Operator (Electronically Signed)
[2018-08-18 11:09] VITALS: BP 144/78
== END 2018-08-18 11:30 | disposition home or self-care (01) | DRG 69 ==
LOC: ED 14:14 → ICU 15:53
PROVIDERS: ADMIT Internal Medicine; ATTEND Internal Medicine Critical Care Medicine
DX: G45.9 Transient cerebral ischemic attack, unspecified (principal); Z87.820 Personal history of traumatic brain injury; Z85.3 Personal history of malignant neoplasm of breast; Z92.3 Personal history of irradiation; F41.9 Anxiety disorder, unspecified; G47.00 Insomnia, unspecified; R29.702 NIHSS score 2; G43.909 Migraine, unspecified, not intractable, without status migrainosus; M48.02 Spinal stenosis, cervical region; Z90.89 Acquired absence of other organs; Z90.49 Acquired absence of other specified parts of digestive tract; Z90.710 Acquired absence of both cervix and uterus; Z91.030 Bee allergy status; Z88.5 Allergy status to narcotic agent; Z86.010 Personal history of colon polyps; Z72.89 Other problems related to lifestyle
CPT/HCPCS: 36415; 70450; 70496; 70498; 70553; 72156; 80048; 80053; 80061; 81003; 81015; 82565; 82607; 83036; 83605; 84443; 84484; 84520; 85025; 85027; 85610; 85730; 86850; 86900; 86901; 87086; 87641; 93306; 99285; A9270-GY; A9579; J1644; J2997; J3411; J3490; Q9967

== ENCOUNTER 2018-11-16 15:10 | Emergency (ER) | payer MEDICARE, OTHER ==
[2018-11-16 15:24] VITALS: BP 138/65
--- NOTE | 2018-11-16 15:48 | UC ---
Back Pain HPI - HPI Summary HPI Summary: Patient presents to urgent care for evaluation of her right back pain. Patient works as a nurse at [employer]. Patient states she helped a student out of wheelchair into a car who had hurt her knee. Patient was then moving the we'll try up onto the sidewalk. Patient states she thinks she might have turned funny and injured her back. Patient states initially she felt okay. Patient states but later that evening she had focal pain in her right paraspinal thoracic area. Patient states since this time she's been taking Motrin. Applied heat. Stretching. Patient states the pain waxes and wanes. At times is right-hand comfortable with movement. Patient without any extremity weakness. No paresthesias. No radiation of pain. No bowel or bladder changes. No direct trauma. No rash. No fever. No urinary symptoms. No hematuria. Patient states she had a massage yesterday and pain seemed much worse after that. Patient states she took some Motrin this morning. Recurrent pain is a 2 out of 10. Patient states this is the best it's felt since it started. 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 Patient does have a history of 2 prior back injuries from work but never had any surgical intervention. Patient's medications reviewed this visit - History of Current Complaint Chief Complaint: UCBackPain Stated Complaint: BACK INJURY Time Seen by Provider: 11/16/18 15:19 Hx Obtained From: Patient Hx Last Menstrual Period: post Onset/Duration: Sudden Onset Timing: Intermittent Severity Initially: Moderate Severity Currently: Mild Pain Intensity: 3 - Allergies/Home Medications Allergies/Adverse Reactions: Allergies Allergy/AdvReac Type Severity Reaction Status Date / Time Sulfa (Sulfonamide Allergy Severe Swelling Verified 11/16/18 15:24 Antibiotics) bee venom protein (honey bee) Allergy Anaphylatic Verified 11/16/18 15:24 Shock morphine Allergy Nausea And Verified 11/16/18 15:24 Vomiting oxycodone [From OxyContin] Allergy Nausea And Verified 11/16/18 15:24 Vomiting PMH/Surg Hx/FS Hx/Imm Hx Previously Healthy: Yes Other History Of: Negative For: HIV - Surgical History Surgical History: Yes Surgery Procedure, Year, and Place: APPY, T&A, , Cholecystectomy, Right shoulder labrium, Left bicep tendon. hysterectomy, lumpectomy left breast 2011 - Family History Known Family History: Positive: Other - GI polyps. - Social History Occupation: Employed Full-time Lives: With Family Alcohol Use: Daily Alcohol Amount: 2-3 glasses/night Substance Use Type: Marijuana Substance Use Comment - Amount & Last Used: rare occassions Smoking Status (MU): Never Smoked Tobacco Have You Smoked in the Last Year: No - Immunization History Most Recent Influenza Vaccination: 2018 Most Recent Pneumonia Vaccination: Unknown Review of Systems All Other Systems Reviewed And Are Negative: Yes Constitutional: Positive: Negative Skin: Positive: Negative Musculoskeletal: Positive: Other: - right paraspinal back pain Neurological: Positive: Negative Psychological: Positive: Negative Physical Exam - Summary Physical Exam Summary: Vital Signs Reviewed: Yes A+Ox3, no distress Eyes: Conjunctiva Clear, INGRID. EOM intact and full ENT: Hearing grossly normal TM x 2 clear, mmoist, uvula midline, no exudate, no erythema Neck: Positive: Supple Respiratory: Positive: No respiratory distress, No accessory muscle use + CTA throughout no w/r Cardiovascular: RRR nl s1, s2 no m/r CBT <2 sec abd soft + BS nt/nd no guarding, no distension Musculoskeletal Exam: No spinous process pain c/t/l/s. + right paraspinal pain mid/distal thoracic 5/5 flext/ext elbow with point pain in same + abduct shoulders + SLE + flex/ext knee, ankles Neurological: Positive: Alert, + sensation throughout + gross sensation throughout LE 2+ patellar b/l Psychological: Positive: Normal Response To Family Skin: Positive: no rash, no ecchymosis Triage Information Reviewed: Yes Vital Signs: Initial Vital Signs Temp 98.6 F 11/16/18 15:15 Pulse 71 11/16/18 15:15 Resp 16 11/16/18 15:15 BP 138/65 11/16/18 15:15 Pulse Ox 97 11/16/18 15:15 Back Pain Course/Dx - Course Course Of Treatment: Patient presents to urgent care with mid to lower paraspinal right sided back pain that started on Wednesday after she just lifting a wheelchair up onto a curb. Patient has taken Motrin. Patient states pain got worse yesterday fungal massage. At present pain is not so bad. Patient is as best as been. Patient without any radiation. Patient without any changes to bowel or bladder. Pain is reproducible with range of motion and direct palpation. Patient distal CSM intact. Discussed with patient at length. We' ll hold on imaging at this point. Motrin Tylenol. Heat. Stretch. Patient declined Flexeril. Patient given referral to both physical therapy as well as occupational medicine. Encourage patient to continue to stretch. Strict return precautions discussed - Differential Dx/Diagnosis Provider Diagnosis: Thoracic back pain Discharge - Sign-Out/Discharge Documenting (check all that apply): Patient Departure All imaging exams completed and their final reports reviewed: No Studies - Discharge Plan Condition: Stable Disposition: HOME Patient Education Materials: Muscle Strain (ED), Thoracic Pain (ED) Referrals: Amelia Yun MD [Primary Care Provider] - Frederic Dyson MD [Medical Doctor] - Additional Instructions: - Okay to alternate ibuprofen (Advil, Motrin) 600mg and Tylenol 1000mg every 3 hours as needed for pain. Take with food. Do NOT take for more than 4-5 days. Do -Wear zelda wrap of back support brace for comfort and support - it is important to take deep, slow breaths while wearing this wrap -Apply moist heat to your back for 20 minutes at a time, 4-5 times a day. Once your muscles are warm, slow gentle stretching exercises are important -Contact the occupational medicine provider to schedule a follow-up appointment. You also have a referral for physical therapy. As discussed, it is recommended you contact the physical therapist at [facility] to discuss to therapy modalities offered -If you pain is uncontrolled, leg weakness, shortness of breath, lightheadedness , urinary symptoms or ANY other concerns it is recommended you go to the emergency department for further treatment - Billing Disposition and Condition Condition: STABLE Disposition: Home
== END 2018-11-16 16:53 | disposition home or self-care (01) ==
LOC: UCEAST 15:10
DX: M54.6 Pain in thoracic spine (principal); Z88.2 Allergy status to sulfonamides; Z88.5 Allergy status to narcotic agent
CPT/HCPCS: 99212; G0463

== ENCOUNTER 2019-02-23 13:08 | Emergency (ER) | payer MEDICARE, OTHER ==
[2019-02-23 14:07] VITALS: BP 127/65
--- NOTE | 2019-02-23 14:28 | UC ---
Lower Extremity/Ankle HPI - HPI Summary HPI Summary: Pt is 69 y/o female with hx of TIA vs stroke requiring tPA presenting with left posterior leg pain beginning this morning. States her pain is worse with touch and weight bearing, reaches 7/10. Denies swelling, redness. States her pain began in the posterior thigh and now encompasses entire posterior leg. Intermittent tingling in foot. Denies shortness of breath, chest pain, cough, dizziness, headache, left arm numbness, back pain. States she has not been taking her daily aspirin. - History of Current Complaint Chief Complaint: UCLowerExtremity Stated Complaint: REDNESS/SWELLING LT LEG Time Seen by Provider: 02/23/19 14:12 Hx Obtained From: Patient Hx Last Menstrual Period: post Onset/Duration: Sudden Onset, Lasting Hours Severity Initially: Moderate Severity Currently: Moderate Pain Intensity: 6 Pain Scale Used: 0-10 Numeric Aggravating Factor(s): Standing, Ambulation, Other - Touch Alleviating Factor(s): Nothing Able to Bear Weight: Yes - elicits posterior knee pain - Allergies/Home Medications Allergies/Adverse Reactions: Allergies Allergy/AdvReac Type Severity Reaction Status Date / Time Sulfa (Sulfonamide Allergy Severe Swelling Verified 02/23/19 14:08 Antibiotics) bee venom protein (honey bee) Allergy Anaphylatic Verified 02/23/19 14:08 Shock morphine Allergy Nausea And Verified 02/23/19 14:08 Vomiting oxycodone [From OxyContin] Allergy Nausea And Verified 02/23/19 14:08 Vomiting PMH/Surg Hx/FS Hx/Imm Hx Previously Healthy: No Neurological History: TIA, CVA Other History Of: Negative For: HIV - Surgical History Surgical History: Yes Surgery Procedure, Year, and Place: APPY, T&A, , Cholecystectomy, Right shoulder labrium, Left bicep tendon. hysterectomy, lumpectomy left breast 2011 - Family History Known Family History: Positive: Other - GI polyps. - Social History Occupation: Employed Full-time - Nurse Alcohol Use: Daily Alcohol Amount: 2-3 glasses/night Substance Use Type: Marijuana Substance Use Comment - Amount & Last Used: rare occassions Smoking Status (MU): Never Smoked Tobacco Have You Smoked in the Last Year: No - Immunization History Most Recent Influenza Vaccination: 2018 Most Recent Pneumonia Vaccination: Unknown Review of Systems All Other Systems Reviewed And Are Negative: Yes Constitutional: Negative: Fever, Chills Respiratory: Negative: Shortness Of Breath, Cough Cardiovascular: Negative: Chest Pain Gastrointestinal: Negative: Abdominal Pain, Vomiting, Nausea Musculoskeletal: Positive: Myalgia - Posterior left knee pain. Negative: Edema Neurological: Positive: Paresthesia - Intermittent, left foot. Negative: Headache, Numbness Physical Exam Triage Information Reviewed: Yes Appearance: Well-Appearing, No Pain Distress Vital Signs: Initial Vital Signs Temp 98.6 F 02/23/19 14:03 Pulse 79 02/23/19 14:03 Resp 16 02/23/19 14:03 BP 127/65 02/23/19 14:03 Pulse Ox 96 02/23/19 14:03 Vital Signs Reviewed: Yes Eye Exam: Normal ENT Exam: Normal Dental Exam: Normal Respiratory: Positive: Lungs clear, No respiratory distress Cardiovascular: Positive: RRR, No Murmur Abdomen Description: Negative: Distended Musculoskeletal: Positive: Other: - No erythema, edema, bruising. Tenderness to palpation of left posterior knee. Strength and sensation is intact. NV intact distally. Neurological Exam: Normal Neurological: Positive: Alert Psychological Exam: Normal Skin Exam: Normal Diagnostics - Radiology DVT left leg ultrasound Radiology Interpretation Completed By: Radiologist Summary of Radiographic Findings: negative for DVT Lower Extremity Course/Dx - Course Course Of Treatment: 69 y/o female with hx of TIA/CVA with left posterior leg pain. U/S left leg negative for DVT, Jackman's cyst. Patient is likely experiencing left leg pain secondary to lumbar radiculopathy. Declined prescriptions, stating she will manage her pain with at-home medications. To f/u with PCP. Patient seen in collaboration with the physician patient care nursing assistant student. - Differential Dx/Diagnosis Differential Diagnosis/HQI/PQRI: Cellulitis, Contusion, DVT, Infection, Sprain, Strain Provider Diagnosis: Left leg pain, Lumbar radiculopathy Discharge - Sign-Out/Discharge Documenting (check all that apply): Patient Departure All imaging exams completed and their final reports reviewed: Yes - Discharge Plan Condition: Improved Disposition: HOME Patient Education Materials: Lumbar Radiculopathy (ED) Referrals: Amelia Yun MD [Primary Care Provider] - Additional Instructions: Call today to schedule prompt follow-up with your doctor. career services manager may help. Return with fever, redness, worse, numbness/weakness or other concerns. Use 40-50 mg of prednisone daily for 5 days. Take an NSAID such as ibuprofen or Aleve but not at the same time as the steroid. Use hydrocodone for uncontrolled pain. Do not drive while taking hydrocodone. [id number] lidocaine patches marketed under the name Salon Pas can be applied to the area of most discomfort. - Billing Disposition and Condition Condition: IMPROVED Disposition: Home - Attestation Statements Document Initiated by Liu: Yes Documenting Scribe: ROLANDO Rivero Provider For Whom Liu is Documenting (Include Credential): Dr. Kuhn Scribe Attestation: Kasey Calderón PA-S, scribed for Dr. Kuhn on 02/23/19 at 1607. Scribe Documentation Reviewed: Yes Provider Attestation: The documentation as recorded by the scribjose martin, ROLANDO Rivero accurately reflects the service I personally performed and the decisions made by Dr. Hattie traylor Status of Scribe Document: Viewed
== END 2019-02-23 15:35 | disposition home or self-care (01) ==
LOC: UCEAST 13:08
DX: M54.16 Radiculopathy, lumbar region (principal); M79.605 Pain in left leg; Z86.73 Personal history of transient ischemic attack (TIA), and cerebral infarction without residual deficits; Z88.5 Allergy status to narcotic agent; Z88.2 Allergy status to sulfonamides
CPT/HCPCS: 99211; G0463

== ENCOUNTER 2024-05-05 20:34 | Observation (INO) ==
[2024-05-05 21:45] LABS: ABS Eosinophils 0.2 10^3/uL (0.0-0.5); ABS Lymphocytes 1.8 10^3/uL (1.0-4.8); ABS Monocytes 0.7 10^3/uL (0.0-0.9); ABS Neutrophils 3.8 10^3/uL (1.5-7.6); Eosinophil % 2.6 %; Hematocrit 40.7 % (35-45); Hemoglobin 13.4 g/dL (11.5-14.3); Lymphocyte % 28.1 %; Mean Corpuscular Hemoglobin 26.9 pg (27-33); Mean Corpuscular Hgb Conc 32.9 g/dL (31-36); Mean Corpuscular Volume 81.8 fL (80-97); Mean Platelet Volume 7.5 fL (7.5-11.2); Platelet Count 330 10^3/uL (150-450); Red Blood Count 4.97 10^6/uL (3.63-4.92); Red Cell Distribution Width 12.8 % (12-17); White Blood Count 6.6 10^3/uL (3.8-11.8)
[2024-05-05 22:06] LABS: Urine Appearance No Cx Clear (Clear); Urine Bilirubin No Culture Negative (Negative); Urine Blood No Culture Negative (Negative); Urine Color No Culture Colorless; Urine Glucose No Culture Negative (Negative); Urine Ketones No Culture Negative (Negative); Urine Leukocytes No Culture Negative Leu/uL (Negative); Urine Nitrite No Culture Negative (Negative); Urine Protein No Culture Negative (Negative); Urine Specific Gravity No Cx 1.008 (1.002-1.030); Urine Urobilinogen No Cx Negative (Negative)
[2024-05-05] MEDS: Thiamine 100 MG/ML 2 ml VIAL 100 MG, Folic Acid IV 1 MG, Multiple Vitamin IV ADULT 10 M... IV ONE (22:06)
[2024-05-05 22:21] LABS: ALT 11 U/L (7-52); AST 16 U/L (13-39); Albumin 4.4 g/dL (3.2-5.2); Albumin/Globulin Ratio 1.4 (1-3); Alcohol, S < 13 mg/dL (<13); Alkaline Phosphatase 60 U/L (35-149); Anion Gap 9 mmol/L (2-16); Blood Urea Nitrogen 11 mg/dL (6-24); CO2 Carbon Dioxide 28 mmol/L (22-32); Calcium 9.4 mg/dL (8.6-10.3); Chloride 95 mmol/L (101-111); Creatinine, Serum 0.76 mg/dL (0.51-0.95); Globulin 3.1 g/dL (2-4); Glucose 91 mg/dL (70-100); Potassium 4.3 mmol/L (3.5-5.0); Sodium 132 mmol/L (135-145); Total Bilirubin 0.4 mg/dL (0.2-1.0); Total Protein 7.5 g/dL (6.4-8.9); eGFR CKD-EPI 83.2 (>60)
[2024-05-05 22:23] LABS: Ur Amorph Crystals No Culture Present /HPF (Absent); Ur Squamous Epithelial No Cx Present /HPF (Absent); Urine Bacteria No Culture 1+ /HPF (Absent); Urine Red Blood Cell No Cult Trace(0-2/hpf) /HPF (0-Trace); Urine White Blood Cell No Cult Trace(0-5/hpf) /HPF (0-Trace)
[2024-05-05] MEDS ORDERED: Lorazepam PYXIS KEY PRN (23:17)
[2024-05-05] MEDS: LORazepam 2 mg VIAL 1 ml IV PUSH ONE (23:26)
[2024-05-05 23:41] LABS: Erythrocyte Sed Rate 0 mm/Hr (0-29)
[2024-05-06 02:19] LABS: TSH Ultra Thyroid Stim Horm 1.86 mcIU/mL (0.34-5.60)
[2024-05-06] MEDS: Enoxaparin 40 MG/0.4 ML SYR SUBCUT SCH (02:23)
[2024-05-06 02:30] LABS: Vitamin B12 > 1450 pg/mL (180-914)
[2024-05-06 07:57] LABS: Calcium 8.3 mg/dL (8.6-10.3); Creatinine, Serum 0.8 mg/dL (0.51-0.95); Potassium 4.4 mmol/L (3.5-5.0); eGFR CKD-EPI 78.2 (>60)
[2024-05-06] MEDS: Acetaminophen IV 1 GM/100ML 1,000 MG/100 ML BAG IV ONE (21:52)
[2024-05-06] MEDS: Prochlorperazine 5 mg/ml 2 ml VIAL (10 mg) IV ONE (22:15)
[2024-05-07] MEDS: Prochlorperazine 5 mg/ml 2 ml VIAL (10 mg) IV ONE (05:46)
[2024-05-07] MEDS ORDERED: Ondansetron 4 mg VIAL 2 MG/ML 2 ml VIAL IV PRN (10:53)
[2024-05-07 14:47] VITALS: BP 119/66
[2024-05-09 21:06] LABS: Anaplasma phagocytophilum Negative (Negative); B. miyamotoi PCR, B Negative (Negative); Babesia divergens/MO-1 Negative (Negative); Babesia ducani Negative (Negative); Ehrlichia chaffeensis Negative (Negative); Ehrlichia ewingii/canis Negative (Negative); Ehrlichia muris eauclairensis Negative (Negative)
== END 2024-05-07 16:10 | disposition home or self-care (01) ==
LOC: ED 20:34 → EDHOLD 20:34 → MEDTELE 05-06 15:54
PROVIDERS: ADMIT Internal Medicine; ATTEND Internal Medicine